=== PATIENT | female | born 1970 | race African-American/Black ===

== ENCOUNTER 2019-08-30 14:09 | Emergency (ER) | payer OTHER ==
[~2019-08-30] VITALS: Ht 165.1 cm; Wt 75.8 kg
[2019-08-30 15:53] LABS: ABSOLUTE NEUTROPHILS 1.8 thou/uL (1.4-8.2); BASOPHILS 1.2 % (0.0-2.0); EOSINOPHILS 1.1 % (0.0-3.0); HEMATOCRIT 40.2 % (37.0-47.0); HEMOGLOBIN 13.3 gm/dL (12.0-15.0); LYMPHOCYTES 43.1 % (24.0-44.0); MCH 29.3 pg (26.0-34.0); MCHC 33.2 g/dL (28.0-37.0); MCV 88.3 fL (80.0-100.0); MONOCYTES 7.6 % (1.0-8.0); PLATELET COUNT 261 thou/uL (150-400); RBC 4.55 mil/uL (4.20-5.00); RDW 13.5 % (10.5-14.5); WBC 3.8 thou/uL (4.0-11.0)
[2019-08-30 16:02] LABS: CALCIUM 9.4 mg/dL (8.5-10.1); CREATININE 0.9 mg/dL (0.6-1.0)
[2019-08-30] MEDS ORDERED: ZYRTEC10 M5 PO (16:05)
[2019-08-30 16:08] LABS: ALBUMIN 3.8 g/dL (3.4-5.0); TOTAL BILIRUBIN 0.3 mg/dL (<0.1-1.0); TOTAL PROTEIN 7.5 g/dL (6.4-8.2)
[2019-08-30] MEDS ORDERED: NORCO 5-325 TA1 EAC1 PO (17:14)
[2019-08-30] MEDS ORDERED: CYCLOBENZAPRINE5 MG PO (17:14)
[2019-08-30 17:16] VITALS: BP 139/89
== END 2019-08-30 17:15 | disposition home or self-care (01) ==
LOC: ER 14:09
PROVIDERS: Physician Assistant
DX: S16.1XXA Strain of muscle, fascia and tendon at neck level, initial encounter (principal); S20.211A Contusion of right front wall of thorax, initial encounter; S09.90XA Unspecified injury of head, initial encounter; R11.10 Vomiting, unspecified; R10.11 Right upper quadrant pain; Z79.899 Other long term (current) drug therapy; V49.88XA Car occupant (driver) (passenger) injured in other specified transport accidents, initial encounter; Y93.89 Activity, other specified; Y92.413 State road as the place of occurrence of the external cause; Y99.9 Unspecified external cause status